=== PATIENT | female | born 1975 | race Caucasian/White ===

== ENCOUNTER 2016-09-20 09:55 | Emergency (ER) | payer OTHER ==
[~2016-09-20] VITALS: Ht 172.7 cm; Wt 138.5 kg
[~2016-09-20 09:55] MED LIST: ACET500C PO; IBUP800T23 PO
[2016-09-20 09:59] VITALS: BP 165/102; PULSE 59; RESP 16; TEMP 99.1; O2SAT 96
[2016-09-20] MEDS ORDERED: HYDR-3366 PO (10:11)
[2016-09-20] MEDS ORDERED: DIAZ10 PO (10:11)
--- NOTE | 2016-09-20 10:13 | PD ---
HPI Chief Complaint: Laceration/Skin Injury Time Seen by Provider: 10:13 Travel History International Travel<30 days: No Contact w/Intl Traveler<30days: No Traveled to known affect area: No History of Present Illness HPI 41-year-old female came to the emergency room with history of right wrist injury. Patient says she was cleaning the kitchen window when her dog who is 70 pounds heavy jumped on her from the back. Her hand went through the glass of the window and she got a puncture wound on the wrist. She bled somewhat at the scene. Currently the wound is wrapped with gauze and tape. Patient does not recall her last tetanus shot. She thinks it's probably almost 20 years ago. The bleeding seems to have stopped at this point. Patient says that her fingers feel a little bit tingly PFSH Past Medical History Narrative Medical List of her past medical, surgical and social history is reviewed from the nursing note. Hx Anticoagulant Therapy: No Diabetes: No Diminished Hearing: No ?: Not LMP: one week ago : 3 Para: 2 Tubal Ligation: Yes Past Surgical History Other Surgery: Yes (bilateral tubal ligation) Social History Alcohol Use: Yes ([facility]) Tobacco Use: No (quit 2005) Substance Use: No Allergies-Medications (Allergen,Severity, Reaction): Coded Allergies: No Known Allergies (Verified , 09/20/16) Comments No known drug allergies. Reported Meds & Prescriptions Reported Meds & Active Scripts Active Bacitracin Topical 500 Unit/Gm Oint 1 Applic TOPICAL BID 7 Days Keflex (Cephalexin) 500 Mg Cap 500 Mg PO Q12H 7 Days Reported [place] (Hydrocodone-Acetaminophen) 10-325 Mg Tab 1 Tab PO Q4H PRN Valium (Diazepam) 10 Mg Tab 10 Mg PO BID PRN Narrative Medication List of her home medications reviewed from the nurse's note. Review of Systems Except as stated in HPI: all other systems reviewed are Neg Physical Exam Narrative GENERAL: Awake, alert, no obvious distress SKIN: Focused skin assessment warm/dry. There is a 1 cm jagged edges in the center of her last wrist on the volar surface. There is no active bleeding. Distal pulsations are present. Patient is able to move her fingers. HEAD: Atraumatic. Normocephalic. EYES: Pupils equal and round. No scleral icterus. No injection or drainage. ENT: No nasal bleeding or discharge. Mucous membranes pink and moist. NECK: Trachea midline. No JVD. CARDIOVASCULAR: Regular rate and rhythm. No murmur appreciated. RESPIRATORY: No accessory muscle use. Clear to auscultation. Breath sounds equal bilaterally. GASTROINTESTINAL: Abdomen soft, non-tender, nondistended. Hepatic and splenic margins not palpable. MUSCULOSKELETAL: No obvious deformities. No clubbing. No cyanosis. No edema. NEUROLOGICAL: Awake and alert. No obvious cranial nerve deficits. Motor grossly within normal limits. Normal speech. PSYCHIATRIC: Appropriate mood and affect; insight and judgment normal. Data Data Last Documented VS Vital Signs Date Time Temp Pulse Resp B/P Pulse Ox O2 Delivery O2 Flow Rate FiO2 09/20/16 09:59 99.1 59 16 165/102 96 Orders Wrist, Complete ([id number]) (09/20/16 ) Tetanus/Diphtheria Tox Adult (Tetanus/Di (09/20/16 10:30) Lidocaine 1% Inj (50 Ml) (Xylocaine 1% I (09/20/16 10:45) MDM Medical Decision Making Medical Screen Exam Complete: Yes Emergency Medical Condition: Yes Medical Record Reviewed: Yes Differential Diagnosis Wrist laceration, possible nerve damage Narrative Course 10:40 AM since the hand went through a glass window of ordered and x-ray to make sure there is no retained foreign body. After that the wound will be cleaned and repaired. 11:30 AM x-ray was within normal limit. The wound was sutured. She'll be discharged home. Procedures Procedure Narrative LACERATION LOCATION: Right wrist volar surface LENGTH: 1.5 x 1.5 cm NUMBER OF STITCHES/DANDY: 3 stitches REPAIR: The area of the laceration was prepped with Betadine and sterilely draped. The laceration was infiltrated with 1% lidocaine 4 mL. The wound was copiously irrigated and explored without evidence of foreign body, tendon injury or neurovascular injury. The wound was closed using 4-0 Prolene. This was a single layer repair. A sterile dressing was applied. The patient was advised to keep the dressing clean and dry. Patient tolerated the procedure well. EKG Prior to Arrival: No Diagnosis Primary Impression: Laceration of wrist, right Qualified Code: S61.511A - Laceration of wrist, right, initial encounter Referrals: Primary Care Physician 3 days Additional Instructions: Please return to the ER the condition worsens or any other new concerns. The wound clean and dry for next 48 hours at least. Take Tylenol/Motrin in case pain occurs. The stitches need to come out in 1 week. Return earlier if the wound looks infected. Take the medication as per the prescription direction. Med/Other Pt SpecificInfo: Prescription(s) given Scripts Bacitracin Topical 500 Unit/Gm Oint1 Applic TOPICAL BID 7 Days Ref 0 Prov:Britany Fernandez MD 09/20/16 Cephalexin (Keflex)500 Mg Qtr949 Mg PO Q12H 7 Days Ref 0 Prov:Britany Fernandez MD 09/20/16 Disposition: 01 DISCHARGE HOME Condition: Stable Britany Fernandez MD September 20, 2016 10:13
[2016-09-20] MEDS ORDERED: LIDOCAINE HCL 1% 30 ML VIAL INFIL ONE (10:30)
[2016-09-20] MEDS ORDERED: TETANUS/DIPHTHERIA TOXOID ADULT 0.5 ML VIAL IM ONE (10:30)
[2016-09-20] MEDS ORDERED: LIDOCAINE HCL 1% 50 ML VIAL INFIL ONE (10:45)
--- NOTE | 2016-09-20 10:52 | RADHPO ---
EXAM DATE/TIME: 09/20/2016 10:41 [facility] COMPARISON: No previous studies available for comparison. INDICATIONS : Right wrist laceration, hand went through window this morning. MEDICAL HISTORY : anemia SURGICAL HISTORY : None. ENCOUNTER: Initial ACUITY: 1 day PAIN SCORE: 05/23 LOCATION: Right wrist FINDINGS: There is marked soft tissue swelling without radiopaque foreign body or fracture at this site indicat ed. There is faint radiopacity in the subcutaneous tissues proximal forearm. CONCLUSION: Marked soft tissue swelling without radiopaque foreign body at site indicated. Glass can be radiolucent. Correlation is suggested. Jorge Ellington MD FACR on September 20, 2016 at 10:48 Board Certified Radiologist. This report was verified electronically.
[2016-09-20] MEDS ORDERED: CEPH-460 PO (11:29)
[2016-09-20] MEDS ORDERED: BACI500O9 TOPICAL (11:32)
== END 2016-09-20 11:44 | disposition home or self-care (01) ==
LOC: PHEFT 09:55
DX: S61.511A Laceration without foreign body of right wrist, initial encounter (principal); W25.XXXA Contact with sharp glass, initial encounter; Z23 Encounter for immunization; Z79.899 Other long term (current) drug therapy; Z87.891 Personal history of nicotine dependence
CPT/HCPCS: 12001; 73110; 90471; 90714

== ENCOUNTER → 2016-11-21 | Outpatient (CLI) | payer OTHER ==
[~2016-11-21] MED LIST changes: -ACET500C PO; +BACI500O9 TOPICAL; +CEPH-460 PO; +DIAZ10 PO; +FERR324T4 PO; +HYDR-3366 PO
[2016-11-21 11:28] LABS: HEMATOCRIT 37.9 % (35.0-46.0); MEAN CORPUSCULAR HEMOGLOBIN 23.7 PG (27.0-34.0); MEAN CORPUSCULAR HGB CONC 31.6 % (32.0-36.0); PLATELET COUNT 328 TH/MM3 (150-450); RED BLOOD COUNT 5.06 MIL/MM3 (4.00-5.30); RED CELL DISTRIBUTION WIDTH 20.2 % (11.6-17.2); WHITE BLOOD COUNT 13.1 TH/MM3 (4.0-11.0)
[2016-11-21 11:36] LABS: REVIEW FLAG FINAL
== END ==
LOC: CPRE 09:43
PROVIDERS: ATTEND Obstetrics & Gynecology
DX: Z01.812 Encounter for preprocedural laboratory examination (principal); D25.9 Leiomyoma of uterus, unspecified
CPT/HCPCS: 36415; 84703; 85027

== ENCOUNTER 2016-11-27 05:40 | Observation (INO) | payer OTHER ==
[~2016-11-27] VITALS: Ht 175.3 cm; Wt 140.5 kg
[~2016-11-27 05:40] MED LIST changes: -BACI500O9 TOPICAL; -CEPH-460 PO
[2016-11-27 05:50] VITALS: BP 142/98; PULSE 90; RESP 20; TEMP 99.2; O2SAT 98
[2016-11-27] MEDS ORDERED: POVIDONE IODINE 5% (ANTISEPSIS KIT) 4 APPLICATIONS EACH NARE PRN (06:00)
[2016-11-27] MEDS ORDERED: METOPROLOL TARTRATE 25 MG TAB PO PRN (06:00)
[2016-11-27] MEDS ORDERED: ceFAZolin 1,000 MG/NS 100 ML IV SCH ×2 (06:00)
[2016-11-27] MEDS ORDERED: MIDAZOLAM HCL 2 MG/2 ML VIAL IV PUSH SCH (06:00)
[2016-11-27] MEDS ORDERED: CHLORHEXIDINE GLUCONATE 2 % 1 PACK (2 CLOTHS) TOPICAL PRN (06:00)
[2016-11-27] MEDS ORDERED: SODIUM CHLORID 0.9% 500 ML IV PRN (06:00)
[2016-11-27] MEDS ORDERED: LACTATED RINGER'S 1000 ML IV PRN (06:00)
[2016-11-27] MEDS ORDERED: INSULIN HUMAN REGULAR 1,000 UNITS/10 ML VIAL SQ PRN (06:00)
[2016-11-27] MEDS ORDERED: ONDANSETRON HCL 4 MG/2 ML VIAL IV PUSH SCH (06:15)
[2016-11-27] MEDS ORDERED: VASOPRESSIN INJ 20 UNITS/ML VIAL ONE (07:23)
[2016-11-27] MEDS ORDERED: APREPITANT 40 MG CAP ONE (07:36)
[2016-11-27] MEDS ORDERED: DEXAMETHASONE SOD PHOS 4 MG/ML VIAL ONE (07:36)
[2016-11-27] MEDS ORDERED: ceFAZolin INJ 1,000 MG VIAL IV ONE (08:16)
[2016-11-27] MEDS ORDERED: DO NOT ADM ANY ANTICOAGULANT DRUGS PRN (10:30)
[2016-11-27] MEDS ORDERED: MIDAZOLAM HCL 2 MG/2 ML VIAL ONE (10:37)
[2016-11-27] MEDS ORDERED: fentaNYL CITRATE 250 MCG/5 ML AMP ONE (10:37)
[2016-11-27] MEDS ORDERED: MORPHINE SULFATE 4 MG/ML INJ ONE (10:38)
--- NOTE | 2016-11-27 10:53 | MP ---
cc: DWAYNE HART DATE OF SURGERY 11/27/2016 PREOPERATIVE DIAGNOSIS Leiomyomata uteri, menorrhagia and anemia. POSTOPERATIVE DIAGNOSIS Leiomyomata uteri, menorrhagia and anemia. PROCEDURE Laparoscopic-assisted supracervical hysterectomy. SURGEON MD Tanner ANESTHESIA General. ESTIMATED BLOOD LOSS 400 cc. COMPLICATIONS None. FINDINGS The patient had a uterus that was approximately 10-12 weeks' size with multiple benign-appearing leiomyomata uteri. The tubes were status post tubal ligation with the proximal tubes being small hydrosalpinxes. The ovaries were unremarkable. The anterior and posterior cul-de-sacs were free of disease. The upper abdominal organs were normal as far as could be visualized. DESCRIPTION OF PROCEDURE The patient was brought to the operating room and following general anesthesia was placed in dorsal lithotomy position. Her vagina, abdomen and perineum were prepped and draped. The HUMI catheter was placed in the uterus and a Pitts catheter into the bladder. A 1-cm subumbilical skin incision was made. Veress needle was inserted and 3 liters of CO2 was infused into the abdomen. The Veress needle was then removed and the laparoscope was placed without difficulty. A second and third puncture site were created under direct visualization. The findings were as noted above. The harmonic scalpel was used to clamp, cut and seal the upper broad ligaments and round ligaments. The bladder peritoneum was incised and the bladder was sharply dissected off the anterior cervix. The cervix was then transected across the upper portion with the harmonic scalpel. During this part of the procedure there was extensive back bleeding from the uterus which accounted for the majority of her blood loss. With the cervix attached, stump of the cervix was cauterized and the endocervical canal was cauterized for future hemostasis. The distal parts of the fallopian tubes were removed the harmonic scalpel. The uterus was then morcellated and removed. The pelvis was copiously irrigated and good hemostasis was noted at all sites. Clear urine was noted in the Pitts catheter. All instruments were removed and the CO2 gas was allowed to escape. The incisions were then closed with subcuticular #4-0 Vicryl stitch. The patient then taken to the recovery room in good condition with all counts correct and clear urine draining from her Pitts catheter. Dwayne Hart MD TGS/SSB /10:13 AM /10:40 AM
[2016-11-27] MEDS ORDERED: MORPHINE SULFATE 30 MG/30 ML PCA ONE (10:58)
[2016-11-27] MEDS ORDERED: NALOXONE HCL 0.4 MG/ML AMP IV PRN (11:00)
[2016-11-27] MEDS ORDERED: diphenhydrAMINE HCL 50 MG/ML VIAL IV PUSH PRN (11:00)
[2016-11-27] MEDS: DEXT 5%-NACL 0.45% 1000 ML INJ 1,000 ML IV SCH ×2 (11:00→17:50)
[2016-11-27] MEDS ORDERED: KETOROLAC TROMETHAMINE 30 MG/ML (IVP) VIAL IV PUSH ONE (11:15)
[2016-11-27] MEDS ORDERED: ONDANSETRON HCL 4 MG/2 ML VIAL IV PUSH PRN (11:15)
[2016-11-27] MEDS ORDERED: oxyCODONE/ACETAMINOPHEN 5 MG/325 MG TAB PO PRN (11:15)
[2016-11-27 11:35] VITALS: BP 143/87; PULSE 75; RESP 18; TEMP 97.5; O2SAT 96
[2016-11-27] MEDS: MORPHINE SULFATE 30 MG/30 ML PCA IV SCH (11:52)
[2016-11-27] MEDS ORDERED: ONDANSETRON HCL 4 MG/2 ML VIAL IV PUSH ONE (12:04)
[2016-11-27] MEDS ORDERED: PROPOFOL 200 MG/20 ML AMP IV ONE (12:04)
[2016-11-27] MEDS ORDERED: NEOSTIGMINE 3 MG/3 ML SYR IV ONE (12:04)
[2016-11-27] MEDS ORDERED: LACTATED RINGER'S 1000 ML INJ 1,000 ML IV ONE (12:04)
[2016-11-27] MEDS: PCA - TOTAL MG MORPHINE DELIVERED PER SHIFT SCH ×2 (14:00→15:00)
[2016-11-27] MEDS: DIAZEPAM 10 MG TAB PO PRN (16:19)
[2016-11-27 16:20] VITALS: BP 135/81; PULSE 81; RESP 18; TEMP 98.6
[2016-11-27 20:11] VITALS: BP 122/73; PULSE 80; RESP 16; TEMP 98.1
[2016-11-28] VITALS: BP 98/59; PULSE 72; RESP 14; TEMP 97.6
[2016-11-28] MEDS: MORPHINE SULFATE 30 MG/30 ML PCA IV SCH (00:49)
[2016-11-28] MEDS: DEXT 5%-NACL 0.45% 1000 ML INJ 1,000 ML IV SCH (00:50)
[2016-11-28 04:00] VITALS: BP 93/63; PULSE 54; RESP 14; TEMP 98.1
[2016-11-28] MEDS: PCA - TOTAL MG MORPHINE DELIVERED PER SHIFT SCH (06:00)
[2016-11-28] MEDS: DIAZEPAM 10 MG TAB PO PRN (06:24)
[2016-11-28 09:00] VITALS: BP 112/63; PULSE 79; RESP 22; TEMP 97.9
[2016-11-28 09:45] LABS: HEMATOCRIT 29.3 % (35.0-46.0)
[2016-11-28 09:47] LABS: REVIEW FLAG FINAL
== END 2016-11-28 12:01 | disposition home or self-care (01) ==
LOC: HSDC 05:40 → H1EA 11:25 → HSDI 11:25
PROVIDERS: ADMIT Obstetrics & Gynecology; ATTEND Obstetrics & Gynecology
DX: D25.9 Leiomyoma of uterus, unspecified (principal); N92.0 Excessive and frequent menstruation with regular cycle; D64.9 Anemia, unspecified
CPT/HCPCS: 00840; 58544; 85014; 85018; 86850; 86900; 86901; 88307; G0378; J0690; J1100; J1885; J2250; J2270; J2405; J2710; J3010; J7120; J8501

== ENCOUNTER → 2017-04-23 | Outpatient (CLI) | payer OTHER ==
[~2017-04-23] MED LIST changes: +ADJUSTABLE COMM1 MIS; +CPMMACHINE; +IBUP1TAB7 PO; -IBUP800T23 PO; +LISI-515 PO; +OXYC-395 PO; +OXYC1CAP PO; +VENTAER INH; +WALKER WHEELS/F1 MIS
[2017-04-23 09:10] LABS: HEMATOCRIT 40.1 % (35.0-46.0); MEAN CELL VOLUME 72.2 FL (80.0-100.0); MEAN CORPUSCULAR HEMOGLOBIN 23.7 PG (27.0-34.0); MEAN CORPUSCULAR HGB CONC 32.9 % (32.0-36.0); PLATELET COUNT 350 TH/MM3 (150-450); RED BLOOD COUNT 5.55 MIL/MM3 (4.00-5.30); RED CELL DISTRIBUTION WIDTH 18.9 % (11.6-17.2); REVIEW FLAG FINAL; WHITE BLOOD COUNT 12.8 TH/MM3 (4.0-11.0)
[2017-04-23 09:15] LABS: APTT (PATIENT) 23.5 SEC (24.3-30.1); PROTHROMBIN TIME - PATIENT 9.9 SEC (9.8-11.6)
[2017-04-23 09:29] LABS: BLOOD, URINE NEG (NEG); COMMENT (UR) CATH-CULT NOT IND; CULTURE IF INDICATED CATH CULTURE NOT IND; GLUCOSE,URINE NEG (NEG); KETONE, URINE NEG (NEG); MUCUS URINE FEW /lpf (OCC); NITRITE,URINE NEG (NEG); PH, URINE 7.5 (5.0-8.5); SQUAMOUS EPITHELIAL CELL URINE 1 /hpf (0-5); URINE COLOR YELLOW (YELLW/STRAW)
[2017-04-23 09:38] LABS: ANION GAP 7 MEQ/L (5-15); AST (GOT) 12 U/L (15-37); BICARBONATE 26.9 MEQ/L (21.0-32.0); BLOOD UREA NITROGEN 16 MG/DL (7-18); CHLORIDE 104 MEQ/L (98-107); GLOMERULAR FILTRATION RATE 84 ML/MIN (>89); GLUCOSE,FASTING 114 MG/DL (74-99); POTASSIUM 3.8 MEQ/L (3.5-5.1); SODIUM (NA) 138 MEQ/L (136-145)
[2017-04-23 09:39] LABS: ALT (GPT) 25 U/L (10-53)
[2017-04-23 09:41] LABS: ALKALINE PHOSPHATASE 83 U/L (45-117); TOTAL BILIRUBIN ADULT 0.2 MG/DL (0.2-1.0)
== END ==
LOC: CPRE 07:59
PROVIDERS: ATTEND Surgery
DX: Z01.812 Encounter for preprocedural laboratory examination (principal)
CPT/HCPCS: 36415; 80053; 81001; 85027; 85610; 85730

== ENCOUNTER 2017-04-30 06:16 | Inpatient (IN) | payer OTHER ==
--- NOTE | 2017-04-24 16:31 | MH ---
cc: Carmen HEALY M.D. DATE OF ADMISSION 04/30/2017 ADMISSION DIAGNOSIS Osteoarthritic degeneration left knee now being admitted for left total knee arthroplasty. HISTORY OF THE PRESENT ILLNESS This pleasant 42-year-old female is being admitted today for left total knee arthroplasty due to severe painful osteoarthritic degeneration left knee. PAST MEDICAL HISTORY Other past history: 1. The patient has a history of hypertension. 2. Anemia, iron deficient. 3. Arthritis. CURRENT MEDICATIONS Include: 1. Lisinopril. 2. Valium. PAST SURGICAL HISTORY Previous surgeries include hysterectomy. REVIEW OF SYSTEMS Noncontributory. FAMILY HISTORY Noncontributory. SOCIAL HISTORY She does not smoke or drink. ALLERGIES NO KNOWN ALLERGIES. PHYSICAL EXAMINATION GENERAL: We find a 42-year-old female well-developed, well-nourished, alert and oriented times three complaining of pain in her left knee. VITAL SIGNS: Blood pressure 140/92, pulse 100 regular, respirations 18. Temperature 97.6. Pulse oximetry 97% on room air. HEENT: Eyes PERRL, EOMI. Ears, nose, mouth clear. NECK: Supple. LUNGS: Clear. HEART: Regular rate. ABDOMEN: Soft. Positive bowel sounds. Nontender. EXTREMITIES: Reveal the left knee to be tender with crepitance on range of motion. She is neurovascularly intact to her toes. IMPRESSION At this time is severe painful osteoarthritic degeneration left knee. PLAN Admission for left total knee arthroplasty today. The patient given a prescription for postoperative pain and anticoagulation control in the office and understands to use Hibiclens scrub and Bactroban preoperatively and plans on going home after surgical stay in the hospital with home health care and physical therapy. MD SHELL Lo/KK /3:37 PM /4:20 PM
[~2017-04-30] VITALS: Ht 172.7 cm; Wt 153.1 kg
[~2017-04-30 06:16] MED LIST changes: -ADJUSTABLE COMM1 MIS; -CPMMACHINE; -HYDR-3366 PO; -OXYC-395 PO; -WALKER WHEELS/F1 MIS
[2017-04-30] MEDS ORDERED: ceFAZolin INJ 1,000 MG VIAL ONE (06:26)
[2017-04-30] MEDS ORDERED: ceFAZolin 1,000 MG/NS 100 ML IV SCH ×2 (07:15)
[2017-04-30] MEDS ORDERED: SODIUM CHLORIDE 0.9% IV SCH ×3 (07:15→13:30)
[2017-04-30] MEDS ORDERED: TRANEXAMIC ACID IV SCH ×3 (07:15→13:30)
[2017-04-30] MEDS ORDERED: CHLORHEXIDINE GLUCONATE 4% SOLN 120 ML BTL TOPICAL SCH (07:15)
[2017-04-30] MEDS ORDERED: ceFAZolin 2 GM PREMIX 50 ML ONE (07:34)
[2017-04-30] MEDS ORDERED: BUPIVACAINE LIPOSOME PF 1.3% 20 ML VIAL ONE (07:35)
[2017-04-30] MEDS ORDERED: DEXAMETHASONE SOD PHOS 20 MG/5 ML VIAL ONE (07:35)
[2017-04-30] MEDS ORDERED: LACTATED RINGER'S 1000 ML IV PRN ×2 (07:45→08:15)
[2017-04-30] MEDS ORDERED: SODIUM CHLORID 0.9% 500 ML IV PRN ×2 (07:45→08:15)
[2017-04-30] MEDS ORDERED: METOPROLOL TARTRATE 25 MG TAB PO PRN ×2 (07:45→08:15)
[2017-04-30] MEDS ORDERED: POVIDONE IODINE 5% (ANTISEPSIS KIT) 4 APPLICATIONS EACH NARE PRN ×2 (07:45→08:15)
[2017-04-30] MEDS ORDERED: CHLORHEXIDINE GLUCONATE 2 % 1 PACK (2 CLOTHS) TOPICAL PRN ×2 (07:45→08:15)
[2017-04-30] MEDS ORDERED: VANCOMYCIN HCL 1000 MG VIAL ONE (07:48)
[2017-04-30] MEDS ORDERED: BUPIVACAINE LIPOSO PF 1.3% INJ 20 ML in SODIUM CHLORIDE 0.9% INJ 100 ML P-ARTICULR SCH (08:00)
[2017-04-30] MEDS ORDERED: INSULIN HUMAN REGULAR 1,000 UNITS/10 ML VIAL SQ PRN (08:15)
[2017-04-30] MEDS ORDERED: Post-op Orders (for Pharmacy) XX ONE (08:15)
[2017-04-30] MEDS ORDERED: ALBUTEROL SULFATE 90 MCG/ACT HFA 8 GM INHALER INH PRN (08:15)
[2017-04-30] MEDS ORDERED: ceFAZolin 2 GM PREMIX 50 ML IV SCH (08:15)
[2017-04-30] MEDS ORDERED: NALOXONE HCL 0.4 MG/ML AMP IV PUSH PRN (08:15)
--- NOTE | 2017-04-30 08:16 | HHI.FF ---
Face to Face Verification Diagnosis: (1) Status post total left knee replacement using cement Physical Therapy Gait training Knee: Total knee, Protocol: Left, Full weight bearing Canvas Knee Splint: When in bed & 2 pillows btw thighs Nursing RN: 3 days/week x 2 weeks Nursing: Dressing changes Dressing Changes: Daily dressing change, 4x4s, Gauze, Paper tape I have seen patient Mel Aguila on 04/30/17. My clinical findings support the need for the requested home health care services because: Limited ability to care for self High risk of falls I certify that my clinical findings support that this patient is homebound because: Unsteady gait/balance Carmen Joshua MD Apr 30, 2017 08:16
[2017-04-30] MEDS ORDERED: WALKER WHEELS/F1 MIS (08:19)
[2017-04-30] MEDS ORDERED: CPMMACHINE (08:19)
[2017-04-30] MEDS ORDERED: ADJUSTABLE COMM1 MIS (08:19)
[2017-04-30] MEDS ORDERED: TEMAZEPAM 15 MG CAP PO PRN (09:00)
[2017-04-30] MEDS: FERROUS SULFATE 325 MG (65 MG ELEMENTAL IRON) TAB PO SCH (09:00)
[2017-04-30] MEDS ORDERED: ONDANSETRON HCL 4 MG/2 ML VIAL IVP PRN (09:00)
[2017-04-30] MEDS ORDERED: diphenhydrAMINE HCL 50 MG/ML VIAL IV PUSH PRN (09:00)
[2017-04-30] MEDS: LISINOPRIL 20 MG TAB PO SCH (09:00)
--- NOTE | 2017-04-30 11:04 | PD.CONS ---
HPI Service [facility] Hospitalists Consult Requested By Dr. Nathaniel Joshua Reason for Consult Medical Management Primary Care Physician MARY Capps Diagnoses: History of Present Illness Mrs. Aguila is a pleasant 42 y/o female with HTN, iron deficiency anemia, morbid obesity, asthma, and osteoarthritis. She was admitted to [facility] on 04/30/17 for left total knee arthroplasty with Dr. Joshua. The [facility] Hospitalist team was consulted to help with medical management. Pt is seen post-operatively. Review of Systems Constitutional: DENIES: Fever, Chills Eyes: DENIES: Vision loss Ears, nose, mouth, throat: DENIES: Hearing loss, Hoarseness, Running Nose Respiratory: DENIES: Cough, Sputum production, Shortness of breath Cardiovascular: DENIES: Chest pain, Palpitations, Lower Extremity Edema Gastrointestinal: DENIES: Abdominal pain, Constipation, Diarrhea, Nausea, Vomiting Genitourinary: DENIES: Hematuria, Dysuria Musculoskeletal: COMPLAINS OF: Joint pain Integumentary: DENIES: Rash Neurologic: DENIES: Headache Psychiatric: DENIES: Confusion Past Family Social History Past Medical History HTN Asthma Morbid obesity Anxiety Osteoarthritis 2D echo (08/30/16) - Mildly dilated LV, LVH, estimated EF 60-65% - RV size is upper limits of normal - LA is mildly dilated - Mild mitral valve regurg - Mild tricuspid valve regurg Past Surgical History Partial Hysterectomy in 11/2016 Reported Medications -Ventolin Hfa 18 GM Inh 90 Mcg/Act Aer 2 Puff INH Q4-6H PRN -Lisinopril 20 Mg PO DAILY -Ferrous Sulfate DR 324 Mg PO DAILY -Valium 10 Mg PO BID PRN Oxycodone 5 Mg PO Q8HR PRN Ibuprofen 800 Mg PO TID PRN Allergies: Coded Allergies: acetaminophen (Verified Adverse Reaction, Severe, Nausea/Vomiting, ) profuse nausea and vomting codeine (Verified Adverse Reaction, Severe, Nausea/Vomiting, 04/23/17) profuse nausea and vomting Family History Sister at age 36 from Congenital heart defect, CAD, cardiomyopathy Father at age 65 from CAD Social History Hx of tobacco use, smoked 1/2ppd x 10 years Physical Exam Vital Signs Vital Signs Date Time Temp Pulse Resp B/P (MAP) Pulse Ox O2 Delivery O2 Flow Rate FiO2 04/30/17 07:15 98.5 78 20 155/79 (104) 97 Physical Exam GENERAL: This is a well-nourished, well-developed patient, in no apparent distress. HEENT: Atraumatic. Normocephalic. No temporal or scalp tenderness. No scleral icterus. Airway patent. NECK: Trachea midline, supple, nontender. CARDIO: Regular. RESP: CTA bilaterally. No wheezes, rales, or rhonchi. ABD: +BS, soft, non-tender, nondistended. EXT: Left knee bandages are c/d/i NEURO: Awake and alert. Motor and sensory grossly within normal limits. Normal speech. Assessment and Plan Problem List: (1) Osteoarthritis of left knee ICD Codes: M17.12 - Unilateral primary osteoarthritis, left knee Status: Chronic Plan: - Pt is a 42 y/o female with HTN, asthma, morbid obesity, iron deficiency anemia and osteoarthritis - Pt s/p Left total knee arthroplasty on 04/30/[address] Joshua - Post-op pain control per Ortho - IS every hour while awake - PT daily - Constipation precautions - DVT prophylaxis with Lovenox ordered (2) Asthma ICD Codes: J45.909 - Unspecified asthma, uncomplicated Plan: - Duonebs PRN (3) Hypertension ICD Codes: I10 - Essential (primary) hypertension Status: Chronic Plan: - Home meds resumed, Lisinopril 20mg po daily - Monitor (4) Anemia, iron deficiency ICD Codes: D50.9 - Iron deficiency anemia, unspecified Status: Chronic Plan: - Cont. iron supplements - Monitor (5) Morbid obesity ICD Codes: E66.01 - Morbid (severe) obesity due to excess calories Status: Chronic Assessment and Plan Patient examined. Assessment and plan formulated with Vale Ybarra PA-C. I agree with the above. Problem Qualifiers (1) Osteoarthritis of left knee: Qualified Codes: M17.12 - Unilateral primary osteoarthritis, left knee (2) Asthma: Qualified Codes: J45.20 - Mild intermittent asthma, uncomplicated (3) Hypertension: Qualified Codes: I10 - Essential (primary) hypertension (4) Anemia, iron deficiency: Qualified Codes: D50.8 - Other iron deficiency anemias Vale Ybarra Apr 30, 2017 11:04 Dawit Lovell DO May 07, 2017 00:47
[2017-04-30] MEDS ORDERED: LORazepam 2 MG/ML VIAL ONE (11:13)
[2017-04-30] MEDS ORDERED: RESP: ALBUTEROL 2.5 MG/IPRATROPIUM 0.5 MG NEB (PRN) NEB (11:15)
[2017-04-30] MEDS ORDERED: ACETAMINOPHEN 1000 MG/100 ML 100 ML IV ONE (11:21)
[2017-04-30] MEDS: ACETAMINOPHEN 1000 MG/100 ML 100 ML IV ONE ×2 (11:22→11:45)
[2017-04-30] MEDS ORDERED: MIDAZOLAM HCL 2 MG/2 ML VIAL ONE (11:27)
[2017-04-30] MEDS ORDERED: *HYDROmorphone PF 1 MG VIAL PERIprocedural Use ONLY ONE (11:29)
[2017-04-30] MEDS ORDERED: hydrALAZINE HCL 20 MG/ML VIAL ONE (11:30)
[2017-04-30] MEDS ORDERED: LORazepam 2 MG/ML VIAL IV PUSH ONE (11:45)
--- NOTE | 2017-04-30 11:46 | RADRPT ---
EXAM DATE/TIME: 04/30/2017 11:21 [facility] COMPARISON: KNEE LEFT LTD (1 OR 2VWS), March 24, 2016, 17:53. INDICATIONS : Post op left knee surgery. MEDICAL HISTORY : None. SURGICAL HISTORY : None. ENCOUNTER: Initial ACUITY: 1 day PAIN SCORE: 10/10 LOCATION: Left knee FINDINGS: Two view examination of the left knee demonstrates total knee arthroplasty. All 3 components are appr opriately positioned. No fracture. CONCLUSION: Appropriate postoperative appearance of the left knee status post total arthroplasty. Nehemiah Marina MD on April 30, 2017 at 11:42 Board Certified Radiologist. This report was verified electronically.
[2017-04-30] MEDS ORDERED: *LABETALOL HCL 100 MG/20 ML VIAL PERIprocedural Use ONLY ONE (11:48)
[2017-04-30] MEDS ORDERED: *morphine SULFATE 8 MG/ML PERIprocedure ONLY ONE (11:48)
[2017-04-30] MEDS ORDERED: ONDANSETRON HCL 4 MG/2 ML VIAL IV ONE (12:00)
[2017-04-30] MEDS ORDERED: ROCURONIUM INJ 50 MG/5 ML SYRINGE IV PUSH ONE (12:00)
[2017-04-30] MEDS ORDERED: SUCCINYLCHOLINE CHLORIDE 100 MG/5 ML SYRINGE IV PUSH ONE (12:00)
[2017-04-30] MEDS ORDERED: SODIUM CHLORIDE 0.9% 20 ML VIAL IV ONE (12:00)
[2017-04-30] MEDS ORDERED: ESMOLOL HCL 100 MG/10 ML VIAL IV ONE (12:00)
[2017-04-30] MEDS: LACTATED RINGER'S 1000 ML INJ 1,000 ML IV SCH ×2 (12:00→21:30)
[2017-04-30] MEDS ORDERED: DO NOT ADM ANY ANTICOAGULANT DRUGS PRN (12:00)
[2017-04-30] MEDS ORDERED: METOPROLOL TARTRATE 5 MG/5 ML VIAL IV ONE (12:00)
[2017-04-30] MEDS ORDERED: LACTATED RINGER'S 1000 ML INJ 1,000 ML IV ONE (12:00)
[2017-04-30] MEDS ORDERED: hydrALAZINE HCL 20 MG/ML VIAL IV PUSH PRN (12:00)
[2017-04-30] MEDS ORDERED: LIDOCAINE HCL 1% PF 5 ML SYRINGE OTHER ONE (12:00)
[2017-04-30] MEDS ORDERED: PROPOFOL 200 MG/20 ML AMP IV ONE (12:00)
--- NOTE | 2017-04-30 12:23 | MP ---
cc: Carmen JOSHUA M.D. DATE OF SURGERY: 04/30/2017 PREOPERATIVE DIAGNOSIS Osteoarthritic degeneration left knee and morbid obesity. POSTOPERATIVE DIAGNOSIS Osteoarthritic degeneration left knee and morbid obesity. SURGERY PERFORMED Left total knee arthroplasty using Consensus component, size 3 femur, 1 tibia, 2 patella, two batches of cobalt blue cement and Bespoke protocol. SURGEON Dr. Joshua. POLE PEELER MARY Jimenez ANESTHESIA General intubation and block. PROCEDURE After successful induction of anesthesia, the patient is placed on the operating room table in the supine position. The knee is prepped and draped in the usual manner. A tourniquet is inflated at the upper thigh and set to 300 mmHg pressure after exsanguination of the lower extremity. A longitudinal incision is made extending from 3 inches proximal to the superior pole of the patella, across the patella in longitudinal fashion, and down past the insertion of the tibial tubercle into the proximal tibia. The incision is carried down through subcutaneous tissue along the medial aspect of the patella and retinaculum, down through the capsule to expose the knee joint. The patella and patellar tendon are freed up enough to allow the patella to be inverted and retracted off the lateral side of the knee joint. The knee joint is left exposed. Small osteophytes are removed. All soft tissue is removed to allow proper position of the femoral and tibial cutting jig guide. The first femoral jig is then inserted along the distal end of the femur after first measuring to decide whether this is a small, medium, or large component. The notch is then drilled and the tibial cutting guide inserted into the femoral cutting guide, along with the ankle brace to allow for proper measurement of the tibial cutting surface that needed to be resected. Pins are inserted into the tibial cutting jig and femoral cutting jig to hold them in place. An oscillating saw is then used to resect the surface of the tibia. The surface of the tibia is then completely removed using sharp and blunt dissection. The anterior and posterior cuts of the femur are then made as well using an oscillating saw through the cutting guide. All guides are then removed and the varus/valgus angulation cutting guide applied to the femur for proper measurement of the proper amount of valgus. The anterior cutting guide for the femur is then inserted at the anterior femoral cuts made. Next, the first block trial is inserted into the femur to allow for proper condyle drill holes to be made which are then made followed by removal of the bone between the condyles using an oscillating saw as well as the bone removed at the most posterior surface of the condyle. After this, this guide is removed and the chamfer cuts made using the chamfer cutting guide from both anterior and posterior. Next, the femoral trial is then inserted, the tibial surface reflected anterior to expose the tibial surface and a tibial stem guide is inserted after first measuring for a standard, standard plus, large, or large plus surface to be used. After the stem is impacted the trial tibial surface is applied followed by the trial meniscal components. After full range of motion is found with the appropriate length meniscal components varying the patella is prepared by resecting the posterior aspect of the patella using an oscillating saw, inserting a trial. The trial is then removed and the cruciate cutting guide applied using the bur to cut the cruciate cuts. After cruciate cuts are made all trials are removed. The wound is irrigated copiously with antibiotic solution and Water Pik and the actual components inserted into place using the aforementioned components. After the cement has hardened and the components are found to have full range of motion with no instability, the tourniquet is deflated, total tourniquet time being 52 minutes at 300 mmHg pressure. 120 ccs of Exparel was used around the knee joint for extra pain control. Meticulous hemostasis was achieved. Deep fascia approximated with running #2 Quill. Subcutaneous tissue approximated in layers using interrupted and running 2-0 and 3-0 Monocryl suture. Steri-Strips, sterile dressing and knee immobilizer. No drain was utilized. Estimated blood loss 200 ccs. Sponge and suture count were correct. The patient tolerated the procedure well and left the operating room in satisfactory condition. ESTIMATED BLOOD LOSS: 200 cc. COUNTS: Sponge and suture counts were correct. COMPONENTS: The components used were the aforementioned components and Bespoke protocol. Extra time was needed for dissection and closure as the patient is morbidly obese. MARY Jimenez was present during the entire procedure to include patient positioning and the procedure. The medical necessity of nurse practitioner first press operator was indicated in this case due to the surgical complexity of the case itself. During the surgical case the assembler surgical garment was working the back table while my surgical nurse MARY was directly assisting me. J. MD SHELL Bowie/TLL /11:17 AM /11:56 AM
[2017-04-30 13:27] VITALS: BP 125/59; PULSE 98; RESP 24; TEMP 98.2; O2SAT 96
[2017-04-30] MEDS: MORPHINE SULFATE 4 MG/ML INJ IV PUSH PRN ×3 (13:27→20:41)
[2017-04-30 13:56] VITALS: RESP 19
--- NOTE | 2017-04-30 14:28 | HHI.PR ---
Immediate Post Op Note Procedure Date: Apr 30, 2017 Pre Op Diagnosis: severe painful osteoarthritic degeneration left knee. Post Op Diagnosis: severe painful osteoarthritic degeneration left knee. Surgeon: Carmen Joshua MD Care Management Associate(s): Betty HERNANDEZ Procedure: Left Total Knee Arthroplasty Specimen(s) removed: none Estimated blood loss: 200 cc Anesthesia: General Drains: None IVF Urinary Output (mLs): 0 (no crump) Tourniquet time (min at mmHg) 53 mins at 300 mmHg Patient to: PACU Patient Condition: Good Implant/Devices: SEE IMPLANT LOG (if applicable) Date/Time of Procedure: SEE SURGICAL CARE RECORD Betty Jiménez Apr 30, 2017 14:28
[2017-04-30] MEDS: DIAZEPAM 10 MG TAB PO PRN (15:29)
[2017-04-30 16:00] VITALS: BP 128/79; PULSE 94; RESP 20; TEMP 98.9; O2SAT 93
[2017-04-30 20:46] VITALS: BP 155/89; PULSE 100; RESP 18; TEMP 98.5; O2SAT 97
[2017-04-30 21:05] VITALS: O2SAT 97
[2017-04-30 23:16] VITALS: BP 157/93; PULSE 92; RESP 19; TEMP 98.7; O2SAT 96
[2017-05-01] MEDS: MORPHINE SULFATE 4 MG/ML INJ IV PUSH PRN (00:12)
[2017-05-01] MEDS: HYDROmorphone HCL PF 2 MG/ML VIAL IV PRN ×4 (04:08→23:53)
[2017-05-01 04:10] VITALS: BP 143/93; PULSE 100; RESP 18; TEMP 98.8; O2SAT 95
[2017-05-01 08:00] VITALS: BP 143/88; PULSE 82; RESP 20; TEMP 98.6; O2SAT 96
[2017-05-01] MEDS: LISINOPRIL 20 MG TAB PO SCH (08:25)
[2017-05-01] MEDS: FERROUS SULFATE 325 MG (65 MG ELEMENTAL IRON) TAB PO SCH (08:25)
[2017-05-01] MEDS: APIXABAN 2.5 MG TABLET PO SCH ×2 (08:27→21:42)
[2017-05-01] MEDS: DIAZEPAM 10 MG TAB PO PRN ×2 (08:27→21:44)
[2017-05-01] MEDS: LACTATED RINGER'S 1000 ML INJ 1,000 ML IV SCH ×2 (08:28→22:08)
[2017-05-01 09:25] VITALS: O2SAT 96
[2017-05-01 09:44] LABS: HEMATOCRIT 31.9 % (35.0-46.0); REVIEW FLAG FINAL
[2017-05-01] MEDS ORDERED: BISACODYL 10 MG SUPP RECTAL PRN (11:15)
[2017-05-01] MEDS ORDERED: SENNOSIDES 8.6 MG TAB PO PRN (11:15)
[2017-05-01] MEDS ORDERED: MAGNESIUM HYDROXIDE SUSP 30 ML CUP PO PRN (11:15)
--- NOTE | 2017-05-01 11:44 | PD.ORT.PN ---
Subjective Subjective Remarks Pt painful but feeling better at moment. Objective Vitals Vital Signs Date Time Temp Pulse Resp B/P (MAP) Pulse Ox O2 Delivery O2 Flow Rate FiO2 05/01/17 09:25 96 05/01/17 08:44 Room Air 05/01/17 08:00 98.6 82 20 143/88 (106) 96 05/01/17 04:10 98.8 100 18 143/93 (110) 95 04/30/17 23:16 98.7 92 19 157/93 (114) 96 04/30/17 21:05 97 Nasal Cannula 3.00 04/30/17 20:46 98.5 100 18 155/89 (111) 97 04/30/17 19:38 Room Air 04/30/17 16:00 98.9 94 20 128/79 (95) 93 04/30/17 13:56 19 04/30/17 13:27 98.2 98 24 125/59 (81) 96 04/30/17 12:00 98.5 85 18 151/73 (99) 99 Nasal Cannula 3 04/30/17 11:45 89 19 182/98 (126) 99 Nasal Cannula 3 I/O 04/30/17 04/30/17 04/30/17 05/01/17 05/01/17 05/01/17 07:00 15:00 23:00 07:00 15:00 23:00 Intake Total 1929 ml 744 ml 1032 ml Output Total 4100 ml Balance -2171 ml 744 ml 1032 ml Intake Oral 300 ml 360 ml 480 ml IV Total 1629 ml 384 ml 552 ml Output Urine Total 900 ml Estimated Blood Loss 200 ml Other 3000 ml # Voids 1 2 5 # Bowel Movements 0 0 0 Result Diagram: 05/01/17 0845 Imaging Last Impressions Knee X-Ray 04/30/17 0808 Signed Impressions: Service Date/Time: Sunday, April 30, 2017 11:21 - CONCLUSION: Appropriate postoperative appearance of the left knee status post total arthroplasty. Nehemiah Marina MD Objective Remarks Dressing dry and intact. NV intact. No calf tenderness. Sitting up in chair. Assessment & Plan Ortho Post Op Day #: 1 Problem List: Assessment and Plan Daily wound care, PT, OOB, home with home health care soon. Carmen Joshua MD May 01, 2017 11:43
[2017-05-01 12:00] VITALS: BP 166/92; PULSE 85; RESP 20; TEMP 98.6; O2SAT 94
[2017-05-01 16:00] VITALS: BP 106/64; PULSE 80; RESP 20; TEMP 98.6; O2SAT 97
[2017-05-01 20:51] VITALS: BP 129/72; PULSE 90; RESP 18; TEMP 99.3; O2SAT 97
[2017-05-01] MEDS: MULTIVITAMINS/MINERALS THERAPEUTIC TAB PO SCH (21:42)
[2017-05-01] MEDS: DOCUSATE SODIUM 100 MG CAP PO SCH (21:42)
[2017-05-02 00:19] VITALS: BP 121/69; PULSE 93; RESP 18; TEMP 99.5; O2SAT 97
[2017-05-02] MEDS: HYDROmorphone HCL PF 2 MG/ML VIAL IV PRN (03:12)
[2017-05-02 08:00] VITALS: BP 130/76; PULSE 96; RESP 18; TEMP 97.6; O2SAT 94
[2017-05-02] MEDS: FERROUS SULFATE 325 MG (65 MG ELEMENTAL IRON) TAB PO SCH (09:00)
[2017-05-02] MEDS: DOCUSATE SODIUM 100 MG CAP PO SCH (09:00)
[2017-05-02] MEDS: APIXABAN 2.5 MG TABLET PO SCH (09:00)
[2017-05-02] MEDS: LISINOPRIL 20 MG TAB PO SCH (09:05)
[2017-05-02] MEDS: MULTIVITAMINS/MINERALS THERAPEUTIC TAB PO SCH (09:05)
[2017-05-02] MEDS: LACTATED RINGER'S 1000 ML INJ 1,000 ML IV SCH (09:55)
[2017-05-02] MEDS ORDERED: BACITRACIN OINT 0.9 GM PKT TOP PRN (10:15)
[2017-05-02 11:32] LABS: HEMATOCRIT 31.4 % (35.0-46.0); REVIEW FLAG FINAL
[2017-05-02 12:00] VITALS: BP 137/75; PULSE 92; RESP 18; TEMP 98.2; O2SAT 94
[2017-05-02 16:00] VITALS: BP 136/63; PULSE 99; RESP 18; TEMP 97.9; O2SAT 98
[2017-05-02 18:14] VITALS: O2SAT 94
--- NOTE | 2017-05-02 18:41 | PD.ORT.PN ---
Subjective Subjective Remarks Pt painful but ready to go home today. Objective Vitals Vital Signs Date Time Temp Pulse Resp B/P (MAP) Pulse Ox O2 Delivery O2 Flow Rate FiO2 05/02/17 18:14 94 21 05/02/17 16:00 97.9 99 18 136/63 (87) 98 05/02/17 14:46 18 05/02/17 12:00 94 05/02/17 12:00 98.2 92 18 137/75 (95) 94 05/02/17 08:00 97.6 96 18 130/76 (94) 94 05/02/17 00:19 99.5 93 18 121/69 (86) 97 05/01/17 20:51 99.3 90 18 129/72 (91) 97 I/O 05/01/17 05/01/17 05/01/17 05/02/17 05/02/17 05/02/17 07:00 15:00 23:00 07:00 15:00 23:00 Intake Total 1032 ml 720 ml 360 ml 480 ml 720 ml Output Total 900 ml 4 ml Balance 1032 ml -180 ml 360 ml 480 ml 716 ml Intake Oral 480 ml 720 ml 360 ml 480 ml 720 ml IV Total 552 ml Output Urine Total 900 ml 4 ml # Voids 5 5 4 # Bowel Movements 0 0 1 1 Result Diagram: 05/02/17 1025 Imaging Last Impressions Knee X-Ray 04/30/17 0808 Signed Impressions: Service Date/Time: Sunday, April 30, 2017 11:21 - CONCLUSION: Appropriate postoperative appearance of the left knee status post total arthroplasty. Nehemiah Marina MD Objective Remarks Dressing dry and intact. NV intact. No calf tenderness. Assessment & Plan Ortho Post Op Day #: 2 Problem List: Assessment and Plan Daily wound care, PT, OOB, home with home health care today. Carmen Joshua MD May 02, 2017 18:41
--- NOTE | 2017-05-02 18:43 | HHI.DS ---
Discharge Summary Admission Date Apr 30, 2017 at 06:16 Discharge Date: May 02, 2017 Admitting Diagnosis Osteoarthritic degeneration left knee Diagnosis: (1) Status post total left knee replacement using cement Diagnosis: Principal ICD Codes: Z96.652 - Presence of left artificial knee joint Brief History This is a 42 year old female patient CBC/BMP: 05/02/17 1025 Significant Findings Laboratory Tests Test 05/01/17 08:45 05/02/17 10:25 Hemoglobin 10.4 GM/DL (11.6-15.3) 10.2 GM/DL (11.6-15.3) Hematocrit 31.9 % (35.0-46.0) 31.4 % (35.0-46.0) PE at Discharge Dressing dry and intact. NV intact. No calf tenderness. Hospital Course Patient underwent a left total knee arthroplasty on day of admission. She received a course of prophylactic IV antibiotics and within 23 hours started on anticoagulation therapy. She continued to improve tolerating food and fluids well and by mouth pain meds. She was discharged on the second postoperative day in good condition with instructions for home healthcare physical therapy and daily wound care and follow-up appointment in the office. Pt Condition on Discharge: Good Discharge Disposition: Disch w/ Home Health Serv Discharge Instructions Diet Instructions: As Tolerated, No Restrictions Activities You Can Perform: Full Weight Bearing, Shower Only-No Bath Activities to Avoid: Bathing, Driving Carmen Joshua MD May 02, 2017 18:43
[2017-05-02] MEDS ORDERED: OXYC-395 PO (18:44)
== END 2017-05-02 19:39 | disposition home health service (06) | DRG 470 ==
LOC: HSDI 06:16 → N06B 12:18
PROVIDERS: ADMIT Surgery; ATTEND Surgery
PROC: 3E0T3BZ Introduction of Anesthetic Agent into Peripheral Nerves and Plexi, Percutaneous Approach (ICD-10-PCS; 2017-04-30)
PROC: 0SRD0J9 Replacement of Left Knee Joint with Synthetic Substitute, Cemented, Open Approach (ICD-10-PCS; principal; 2017-04-30 07:56)
DX: M17.12 Unilateral primary osteoarthritis, left knee (principal); Z68.43 Body mass index [BMI] 50.0-59.9, adult; I10 Essential (primary) hypertension; E66.01 Morbid (severe) obesity due to excess calories; J45.20 Mild intermittent asthma, uncomplicated; D50.9 Iron deficiency anemia, unspecified; F41.9 Anxiety disorder, unspecified; Z87.891 Personal history of nicotine dependence; Z88.5 Allergy status to narcotic agent; Z88.8 Allergy status to other drugs, medicaments and biological substances
CPT/HCPCS: 73560; 85014; 85018; 86850; 86900; 86901; 94150; C1776; C9290; J0131; J0330; J0360; J0690; J1100; J1170; J1200; J2060; J2250; J2270; J2405; J3010; J3370; J7120; L1830